=== PATIENT | female | born 1970 | race Caucasian/White ===

== ENCOUNTER 2020-08-04 10:30 | Outpatient (REF) | payer OTHER, SELFPAY ==
--- NOTE | 2020-08-04 10:35 | XR_ITS ---
EXAMINATION: XR ELBOW, RIGHT CLINICAL INFORMATION: Pain right elbow COMPARISON: None TECHNIQUE: AP, lateral, and oblique views of the right elbow. FINDINGS: There is no fracture, dislocation, destructive process, or elbow capsular effusion. No joint narrowing or erosive change. There is borderline spurring at the lateral epicondyle. IMPRESSION: Borderline spurring lateral epicondyle.
== END 2020-08-04 10:31 | disposition home or self-care (01) ==
LOC: HO.HMGCX 10:30
PROVIDERS: PCP Internal Medicine; Visit Provider Nurse Practitioner Family
DX: M25.521 Pain in right elbow (principal)
CPT/HCPCS: 73080

== ENCOUNTER → 2020-10-15 09:54 | Outpatient (BNVA) | payer OTHER, SELFPAY | PROVIDERS: Visit Provider Orthopaedic Surgery | DX: M77.11 Lateral epicondylitis, right elbow (principal) | CPT/HCPCS: 20550; 20605; 99202; J1020; J1100 ==

== ENCOUNTER 2021-01-28 10:28 | Outpatient (REF) | payer OTHER, SELFPAY ==
--- NOTE | ~2021-01-28 | MM_ITS ---
EXAMINATION: MM DIAGNOSTIC DIGITAL BREAST TOMOSYNTHESIS, RIGHT CLINICAL INFORMATION: Six-month follow-up left breast density. The lifetime risk of breast cancer based on the Tyrer-Cuzick Model is 17%. COMPARISON: Mammography: 07/10/2020 and studies dating back to 04/26/2007. TECHNIQUE: Digital breast tomosynthesis is performed in both the craniocaudal and mediolateral oblique views along with computer-aided detection (CAD). Synthesized 2D images are generated from the tomosynthesis. Additional left exaggerated craniocaudal view performed. FINDINGS: The breasts are heterogeneously dense, which may obscure small masses (ACR BI-RADS breast composition Category c). There is essentially a stable parenchymal pattern present. No suspicious grouping of microcalcifications identified. Circumscribed density anterior aspect of the left breast again seen. The density seen about the deep aspect of the left breast previously on craniocaudal view is best seen now on the exaggerated craniocaudal view and again likely represents a grouping of vessels which returns. Recommend 6 month follow-up bilateral mammography with left breast exaggerated craniocaudal view as well. Results are provided to the patient at time of visit by the technologist. MM/MM tomosynthesis diagnostic LT IMPRESSION: Density about the deep aspect of the left breast seen on craniocaudal and to extent on exaggerated craniocaudal view likely related to turn of vessels. ASSESSMENT: BI-RADS 3: Probably Benign. RECOMMENDATION: Diagnostic mammography in 6 months. This patient's information was entered into a reminder system with a target due date for their next mammogram.
== END 2021-01-28 10:29 | disposition home or self-care (01) ==
LOC: HO.MAMMO 10:28
PROVIDERS: PCP Internal Medicine; Visit Provider Internal Medicine
DX: R92.2 Inconclusive mammogram (principal)
CPT/HCPCS: 77061; 77065

== ENCOUNTER 2021-08-10 12:19 | Outpatient (REF) | payer OTHER, SELFPAY ==
--- NOTE | ~2021-08-10 | MM_ITS ---
EXAMINATION: MM DIAGNOSTIC DIGITAL BREAST TOMOSYNTHESIS, BILATERAL CLINICAL INFORMATION: Due for yearly. Also follow-up probable benign asymmetric fibroglandular tissue posterior central left breast on CC view. Family history breast cancer, mother. The lifetime risk of breast cancer based on the Tyrer-Cuzick Model is 14%. COMPARISON: Mammography: 01/28/2021, 02/08/2020, 07/01/2020 (BI-RADS 0), 04/16/2019, 03/26/2018, 02/01/2017, 12/09/2015 TECHNIQUE: Digital breast tomosynthesis is performed in both the craniocaudal and mediolateral oblique views along with computer-aided detection (CAD). Synthesized 2D images are generated from the tomosynthesis. FINDINGS: There are scattered areas of fibroglandular density (ACR BI-RADS breast composition Category b). Parenchymal pattern is similar to prior studies with some minor shifting fibroglandular densities from year to year with positioning. The fibroglandular asymmetry posterior central left breast on CC view with internal fatty attenuation is similar to recent exams. Neither breast shows abnormal calcifications. There is no developing density or interval mass or architectural abnormality. The axilla and skin contours are unremarkable. Results are provided to the patient at time of visit by the technologist. MM/MM tomosynthesis diagnostic BI IMPRESSION: 1. Left: Stable island fibroglandular tissue posterior central left breast. No developing density. 2. Right: No mammographic evidence of malignancy. ASSESSMENT: BI-RADS 3: Probably Benign RECOMMENDATION: Diagnostic mammography at time of next annual exam, due in 12 months. This patient's information was entered into a reminder system with a target due date for their next mammogram.
== END 2021-08-10 12:20 | disposition home or self-care (01) ==
LOC: HO.MAMMO 12:19
PROVIDERS: PCP Internal Medicine; Visit Provider Internal Medicine
DX: R92.2 Inconclusive mammogram (principal)
CPT/HCPCS: 77062; 77066

== ENCOUNTER 2022-08-15 08:52 | Outpatient (REF) | payer OTHER, SELFPAY ==
--- NOTE | ~2022-08-15 | MM_ITS ---
EXAMINATION: MM DIAGNOSTIC DIGITAL BREAST TOMOSYNTHESIS, BILATERAL CLINICAL INFORMATION: Due for yearly. Also follow-up fibroglandular asymmetry posterior left breast medial to midline initially noted in 2019. Family history breast cancer, mother. The lifetime risk of breast cancer based on the Tyrer-Cuzick Model is 15%. COMPARISON: Mammography: 08/10/2021, 01/28/2021, 07/10/2020, 07/01/2020, 04/16/2019 TECHNIQUE: Digital breast tomosynthesis is performed in both the craniocaudal and mediolateral oblique views along with computer-aided detection (CAD). Synthesized 2D images are generated from the tomosynthesis. FINDINGS: There are scattered areas of fibroglandular density (ACR BI-RADS breast composition Category b). There is no developing density or interval mass or architectural abnormality. The fibroglandular asymmetry for follow-up is no longer clearly demonstrated. There is nodular asymmetry periareolar 12:00 left breast similar to prior studies. No abnormal calcifications. The axilla are unremarkable. Probable dermal lesion mid lower left breast stable. Results are provided to the patient at time of visit by the technologist. MM/MM tomosynthesis diagnostic BI IMPRESSION: -No mammographic evidence of malignancy. ASSESSMENT: BI-RADS 2: Benign RECOMMENDATION: Routine annual mammography screening. This patient's information was entered into a reminder system with a target due date for their next mammogram.
== END 2022-08-15 08:53 | disposition home or self-care (01) ==
LOC: HO.MAMMO 08:52
PROVIDERS: Visit Provider Internal Medicine
DX: R92.2 Inconclusive mammogram (principal)
CPT/HCPCS: 77062; 77066

== ENCOUNTER 2022-09-13 09:47 | Outpatient (REF) | payer OTHER, SELFPAY ==
[2022-09-13 11:42] LABS: MANUAL DIFF FLAG NO
[2022-09-13 11:58] LABS: Basophils Percent Auto 0.7 % (0-2); Eosinophils Percent Auto 1.3 % (0-4); Hematocrit 42.6 % (37.0-47.0); Hemoglobin 13.7 g/dl (12.0-16.0); Lymphocytes Absolute Auto 1.2 X10*3/uL (1.2-4.9); Lymphocytes Percent Auto 38.2 % (20-40); Mean Corpuscular HGB Conc 32.2 g/dl (31.0-35.0); Mean Corpuscular Hemoglobin 29.7 pg (27.0-33.0); Mean Corpuscular Volume 92.4 fL (80.0-98.0); Mean Platelet Volume 10.2 fL (9.4-12.3); Monocytes Absolute Auto 0.2 X10*3/uL (0.1-1.2); Monocytes Percent Auto 7.3 % (2-11); Neutrophils Absolute Auto 1.6 x10*3/uL (2.0-8.3); Neutrophils Percent Auto 52.5 % (45-73); Platelet Count 250 X10*3/uL (160-400); Red Blood Count 4.61 X10*6/uL (4.20-5.50); Red Cell Distribution Width 11.7 % (11.0-16.0)
[2022-09-13 12:15] LABS: Alanine Aminotransferase 13 U/L (0-31); Albumin Level 4.4 g/dL (3.5-5.0); Alkaline Phosphatase 62 U/L (39-117); Anion Gap 13 (12-20); Aspartate Amino Transferase 19 U/L (5-31); Bilirubin Total 0.5 mg/dL (0.0-1.0); Blood Urea Nitrogen 13 mg/dL (9-16); Calcium 9.6 mg/dL (8.4-10.2); Carbon Dioxide 28 mmol/L (22-29); Chloride 104 mmol/L (96-108); Cholesterol 221 mg/dL; Estimated Glomerular Filt Rate > 60; Glucose Fasting 98 mg/dL (60-99); HDL Cholesterol 70 mg/dL; LDL Cholesterol Calculated 140 mg/dl; Sodium 141 mmol/L (135-145); Total Protein 7.6 g/dL (6.5-8.0); Triglycerides 55 mg/dL
[2022-09-13 12:36] LABS: TSH reflex Free T4 1.61 uIU/mL (0.32-4.0)
[2022-09-18 15:09] LABS: Vitamin D 25-OH, D2 <4 ng/mL; Vitamin D 25-OH, D3 28 ng/mL; Vitamin D 25-OH, Total 28 ng/mL (30-100)
== END 2022-09-13 09:48 | disposition home or self-care (01) ==
LOC: HO.HMGCLDS 09:47
PROVIDERS: PCP Internal Medicine; Visit Provider Internal Medicine
DX: Z00.01 Encounter for general adult medical examination with abnormal findings (principal); E78.9 Disorder of lipoprotein metabolism, unspecified; F41.1 Generalized anxiety disorder; M19.90 Unspecified osteoarthritis, unspecified site
CPT/HCPCS: 36415; 80053; 80061; 82306; 84443; 85025

== ENCOUNTER → 2023-01-02 08:52 | Outpatient (BNVA) | payer OTHER, SELFPAY | PROVIDERS: PCP Internal Medicine; Referring Provider Internal Medicine; Visit Provider Physician Assistant | DX: Z12.11 Encounter for screening for malignant neoplasm of colon (principal) | CPT/HCPCS: 99202 ==

== ENCOUNTER 2023-08-21 08:43 | Outpatient (REF) | payer OTHER, SELFPAY | END 2023-08-21 08:44 | disposition home or self-care (01) | LOC: HO.MAMMO 08:43 | PROVIDERS: PCP Internal Medicine; Visit Provider Internal Medicine | DX: Z12.31 Encounter for screening mammogram for malignant neoplasm of breast (principal) | CPT/HCPCS: 77063; 77067 ==

== ENCOUNTER → 2023-08-21 08:45 | Outpatient (BNV) | payer OTHER, SELFPAY | PROVIDERS: PCP Internal Medicine; Visit Provider Radiology Diagnostic Radiology | DX: Z12.31 Encounter for screening mammogram for malignant neoplasm of breast (principal) | CPT/HCPCS: 77063; 77067 ==

== ENCOUNTER 2023-08-28 08:25 | Day surgery (SDC) | payer OTHER, SELFPAY ==
[2023-08-24 15:13] VITALS: BMI 24.4
[2023-08-28 09:04] VITALS: BP 117/76; PULSE 71; RESP 18; TEMP 36.8; O2SAT 100
[2023-08-28] MEDS: Lactated Ringers 1,000 ML 50 ML IVCONT (09:08)
--- NOTE | 2023-08-28 09:13 | HO.ANESPROP2 ---
[facility] Active Problems Active Problems: All Active Problems (Updated 08/24/23 @ 15:14 by Chari Shelby RN) Encounter for screening colonoscopy (Acute) Skin growth (Acute) Arthrosis (Acute) Muscular pain (Acute) Colonoscopy refused (Acute) Lipid disorder (Acute) Herpes labialis (Acute) Anxiety, generalized (Acute) Encounter for general adult medical examination with abnormal findings (Acute) Alcohol screening (Acute) Elbow pain, right (Acute) Lateral epicondylitis, right elbow (Acute) Past Medical History Medical History (Updated 08/24/23 @ 15:14 by Chari Shelby RN) Anxiety Elevated cholesterol Lateral epicondylitis, right elbow Family History Family history of problems with anesthesia: No Surgical History Surgical History History of surgical removal of ganglion cyst History of carpal tunnel release History of Problems with Anesthesia: No Social History Social History Housing: House Patient Tobacco Use Status: Former Tobacco user (20 years ago ) Years Smoked: 15 e-Cigarette/Vaping Use: Never Used Advance Directives: No Advance Directives Information Provided: Yes Current occupational status: employed Current occupation: [employer] Right Handed Cognitive needs: No Hearing needs: No Vision needs: Yes Meds Allergies Allergy/AdvReac Type Severity Reaction Status Date / Time amoxicillin [Amoxicillin] Allergy Mild HIVES Verified 02/14/23 11:17 escitalopram [Lexapro] AdvReac Unknown numbness Verified 02/14/23 11:17 Active Medications: Current Medications Lactated Ringer's (Lr) 1,000 mls @ 50 mls/hr IVCONT .Q20H ANDREA Last Admin: 08/28/23 09:08 Dose: 50 mls/hr Exam Exam Date and Time: August 28, [id number] Height,Weight and Vital Signs: Height 5 ft 3 in Weight 62.596 kg Last Vital Signs Temp 98.3 F 08/28/23 09:04 Pulse 71 08/28/23 09:04 Resp 18 08/28/23 09:04 BP 117/76 08/28/23 09:04 Pulse Ox 100 08/28/23 09:04 O2 Del Method Room Air 08/28/23 09:04 Airway Mallampati Class: II (caps laterally) TM Dist: >3cm Neck ROM: Full Heart: rrr Lungs: cta Assessment and Plan Assessment Anesthesia Assessment: Anesthesia Plan Discussed and Chart Reviewed Final Anesthetic Review Family History of Problems with Anesthesia: No History of Problems with Anesthesia: No ASA Class: II Final Preanesthetic Review: No Changes in Pt Med Stat, Meds/Allgs Chart Reviewed and Consent Obtained/Reviewed Patient Risk: Intermediate Procedure Risk: Intermediate Anesthetic Plan Anesthetic Plan: MAC: Disposition: Standard PACU
--- NOTE | 2023-08-28 09:20 | MHC.SHP ---
Pre-Procedural Eval Section A Date of Service: 08/28/23 Section B Chief Complaint: Colon cancer screening Relevant Family History (Specify if Yes): No Relevant Social History: Tobacco Use (former smoker) Present Medications: see Short Stay Collaborative assessment Medical History: Significant History (Elevated cholesterol, right lateral epicondylitis) History of Previous Operations: Relevant previous surgery/procedure and date(s) (History of carpal tunnel release History of surgical removal of ganglion cyst) Allergies: Allergies Allergy/AdvReac Type Severity Reaction Status Date / Time amoxicillin [Amoxicillin] Allergy Mild HIVES Verified 02/14/23 11:17 escitalopram [Lexapro] AdvReac Unknown numbness Verified 02/14/23 11:17 Review of Systems Sugical H&P ROS: Negative: Constitution, Cardiovascular, Respiratory and Gastrointestinal Exam Surgical H&P Exam: Normal: Heart, Normal: Lungs, Normal: Extremities and Normal: Abdomen Plan Diagnosis/Plan: Unchanged I have reviewed the history and physical and performed a pertinent physical examination on my patient. No changes have occurred unless specified. Time Spent With Patient Time: Total time managing care of this patient today ____ minutes.
--- NOTE | 2023-08-28 10:11 | W.PM.OPN ---
Operative Note Operative Note Date of Service: 08/28/23 Narrative: COLONOSCOPY TILL CECUM Pre-op diagnosis: Colon cancer screening (1st colonoscopy) Post-op diagnosis:? Diverticulosis, hemorrhoids Endoscopist:? Ryan Arteaga MD Anesthesia:?MAC Consent: Indications for the procedure and potential complications of bleeding, perforation, reaction to medications and missed diagnosis were discussed with the patient and informed consent was obtained. Instrument: Olympus PCF H 190 L variable stiffness pediatric colonoscope Monitoring: Vital signs and clinical assessment, intermittent blood pressure monitoring, continuous EKG monitoring, Pulse oximetry and Carbon Dioxide monitoring were done throughout the procedure. Please see anesthesia flowsheet. Colon withdrawl time was 12 minutes. Procedure: The patient was placed in the left lateral decubitis position and pre-procedure medications were administered. After a digital rectal examination of the ano-rectum, the video colonoscope was inserted into the rectum and advanced through the colon to the cecum. The colonoscope was slowly withdrawn in a retrograde panoramic fashion and the colon mucosa was carefully examined including a retroflexed view of the rectum. Findings and interventions are described below. Procedure Difficulty: Without difficulty Findings: Terminal Ileum: Not evaluated Cecum: Normal Ascending Colon: Normal Transverse Colon: Normal Descending Colon: Normal Sigmoid Colon: Moderate diverticulosis Rectum: Normal Ano-rectum: Small internal hemorrhoids Colon preparation: Excellent Impression and Post Procedure Diagnosis: Colonoscopy Findings: No polyps were detected Moderate diverticulosis seen in the sigmoid colon Small hemorrhoids on retroflexed exam. Plan: Patient has an appointment on 09/11/23 in the GI Clinic with MEGHAN Da Silva . Repeat Colonoscopy in 10 years. Above findings were reviewed with the patient and diverticulosis handouts were given in the discharge area
[2023-08-28 10:53] VITALS: BP 92/65; PULSE 82; RESP 17; TEMP 37.4; O2SAT 98
[2023-08-28 11:07] VITALS: BP 111/73; PULSE 62; RESP 18; TEMP 36.9; O2SAT 100
== END 2023-08-28 11:49 | disposition home or self-care (01) ==
PROVIDERS: PCP Internal Medicine; Visit Provider Internal Medicine Gastroenterology
PROC: 0DJD8ZZ Inspection of Lower Intestinal Tract, Via Natural or Artificial Opening Endoscopic (ICD-10-PCS; CPT 45378; principal; 2023-08-28 10:10)
DX: Z12.11 Encounter for screening for malignant neoplasm of colon (principal); K57.30 Diverticulosis of large intestine without perforation or abscess without bleeding; K64.8 Other hemorrhoids; E78.00 Pure hypercholesterolemia, unspecified; Z87.891 Personal history of nicotine dependence
CPT/HCPCS: 45378; J2704

== ENCOUNTER → 2023-08-28 08:25 | Outpatient (BNV) | payer OTHER, SELFPAY | PROVIDERS: PCP Internal Medicine; Visit Provider Internal Medicine Gastroenterology | DX: Z12.11 Encounter for screening for malignant neoplasm of colon (principal); K57.30 Diverticulosis of large intestine without perforation or abscess without bleeding; K64.8 Other hemorrhoids | CPT/HCPCS: 45378 ==

== ENCOUNTER 2023-09-19 10:17 | Outpatient (AMB) | payer OTHER, SELFPAY ==
[2023-09-19 10:26] VITALS: BP 118/82; PULSE 84; O2SAT 98; BMI 24.5
--- NOTE | 2023-09-19 10:26 | MHC.PC.OV ---
Vital Signs 09/19/23 10:26 Height 5 ft 3 in Weight 138 lb 4 oz BMI 24.5 BP 118/82 Blood Pressure Location Lt brachial Position Sitting Pulse 84 Pulse Source Pulse Oximeter Pulse Oximetry (%) 98 Oxygen Delivery Method Room Air Intake Visit Reasons: Annual PE Allergies amoxicillin [Amoxicillin] Allergy (Mild, Verified 09/19/23 10:29) HIVES escitalopram [Lexapro] Adverse Reaction (Unknown, Verified 09/19/23 10:29) numbness Medication List - Last Reconciled 09/19/23 by Nelson Mccoy MD sertraline 50 mg PO DAILY 90 days valacyclovir 1,000 mg PO BID PRN 90 days Tobacco use date assessed: 09/19/23 Dental Screening Dental Screen Date: 09/19/23 Did you have a dental visit in the last 12 months?: Yes Did you have a dental problem in the last 6 months where you did not have access to dental care?: No Was dental information given to patient?: Patient has dentist HPI Annual PE HPI Details Patient is a 53-year-old female came in today for physical exam Anxiety stable patient is on sertraline Trying to cut down on alcohol consumption, she works as a [employer] Need CRV appointment Need labs done Recurrent cold sores stable with valacyclovir White count fluctuate last white count was low we will be monitoring it again Follow-up 6 months physical exam 1 year [facility] Medical History Anxiety Elevated cholesterol Lateral epicondylitis, right elbow Surgical History History of surgical removal of ganglion cyst History of carpal tunnel release Social History Housing: House Patient Tobacco Use Status: Former Tobacco user Years Smoked: 15 e-Cigarette/Vaping Use: Never Used Current occupational status: employed Current occupation: [employer] Cognitive needs: No Hearing needs: No Vision needs: Yes Questionnaire PHQ-9 Over the last 2 weeks, how often have you been bothered by any of the following problems? 1. Little interest or pleasure in doing things: not at all 2. Feeling down, depressed, or hopeless: not at all 3. Trouble falling or staying asleep, or sleeping too much: several days 4. Feeling tired or having little energy: not at all 5. Poor appetite or overeating: not at all 6. Feeling bad about yourself - or that you are a failure or have let yourself or your family down: not at all 7. Trouble concentrating on things, such as reading the newspaper or watching television: not at all 8. Moving or speaking so slowly that other people could have noticed. Or the opposite - being so fidgety or restless that you have been moving around a lot more than usual: not at all 9. Thoughts that you would be better off or of hurting yourself in some way: not at all Total score: 1 Depression Screening Interpretation: Negative Depression Screening Done: Yes 44487 - PHQ-9 Billing: Yes Source: Developed by Drs. Norris Willard, Ling Gonzalez, Yo Mckeon and colleagues, with an educational valarie from [employer]. Thrive Questionnaire Date Thrive assessed: 09/19/23 I am a: Patient What is your living situation today?: I have a steady place to live Within the past 12 months, did the food you bought not last and you didn't have the money to get more?: Never true Within the past 12 months, did you worry whether your food would run out before you got money to buy more?: Never true Do you have trouble paying for medicines?: No Do you have trouble getting transportation to medical appointments?: No Do you have trouble paying your heating and electricity bill?: No Do you have trouble taking care of your child, family member or friend?: No Do you have trouble with day-to-day activities such as bathing, preparing meals, shopping, managing finances, etc.?: No Are you currently unemployed and looking for a job?: No Are you interested in more education?: No Please select the resources that you would like help with: None Currently or been in a relationship where the following occur: no concerns reported AUDIT C Alcohol Use Questionnaire (AUDIT-C) 1. How often do you have a drink containing alcohol?: 2-3 times a week 2. How many drinks containing alcohol do you have on a typical day when you are drinking?: 3 or 4 3. How often do you have six or more drinks on one occasion?: Never Total Score: 4 Score Reviewed/Action Taken: Yes MANOJ-7 AMB Questionnaire MANOJ-7 Date MANOJ - 7 assessed: 09/19/23 Feeling nervous, anxious, or on edge: 0 = Not at all Not being able to stop or control worryin = Not at all Worrying too much about different things: 0 = Not at all Trouble relaxin = Not at all Being so restless that it is hard to sit still: 0 = Not at all Becoming easily annoyed or irritable: 0 = Not at all Feeling afraid as if something awful might happen: 0 = Not at all Total MANOJ-7 score (0-4 normal; 5-9 mild; 10-14 moderate; 15-21 severe): 0 Source: Developed by Drs. Norris Willard, Ling Gonzalez, Yo Mckeon and colleagues, with an educational valarie from [employer]. MANOJ-7 Assessment Billing MANOJ-7 Assessment Tool: MANOJ-7 Assessment 65105 Review of Systems Const Denies chills, Denies fever(s) and Denies headache(s) Eyes Denies blurry vision ENT Denies headache(s), Denies nasal discharge, Denies nasal obstruction, Denies odynophagia and Denies sinus pain Card Denies chest pain at rest and Denies chest pain with activity Resp Denies cough and Denies hemoptysis GI Denies diarrhea, Denies odynophagia, Denies vomiting and Denies hematemesis Reports as per HPI Musc Denies abnormal gait Skin/Breast Reports as per HPI Neuro Denies Neuro-related abnormal movements, Denies Abnormal speech present, Denies abnormal gait, Denies headache(s) and Denies Sensory deficit (Neuro) Psych Denies mood swings and Denies paranoia Endo Reports as per HPI Angel/Lymph Reports as per HPI Aller/Immun Reports as per HPI Physical exam (Primary Care) Vital Signs: Last Vital Signs Pulse 84 09/19/23 10:26 BP 118/82 09/19/23 10:26 Pulse Ox 98 09/19/23 10:26 Oxygen Delivery Method Room Air 09/19/23 10:26 BMI result Body Mass Index 24.5 Tobacco/Smoking Status: Tobacco use Status Tobacco use date assessed 09/19/23 09/19/23 10:29 Patient Tobacco Use Status Former Tobacco user 09/19/23 10:29 e-Cigarette/Vaping Use Never Used 09/19/23 10:29 PHQ-9: PHQ-9 Score PHQ-9: Total score 1 09/19/23 13:08 Depression Screening Interpretation: Negative Thrive Assessment: Date of Thrive Assessment Date Thrive assessed 09/19/23 09/19/23 10:55 Currently or been in a relationship where the following occur: no concerns reported Const General: cooperative, comfortable and no acute distress Orientation/consciousness: patient oriented x3 HENMT Head: Yes normocephalic and Yes atraumatic Eyes General: appearance normal, both eyes and all related structures Pupils: Equal, round and reactive pupils present EOM: EOMs intact bilaterally Neck Neck: Yes supple and No lymphadenopathy Thyroid: Thyroid normal Lymphatic: no lymphadenopathy noted Resp Effort & Inspection: normal respiratory effort and able to speak in complete sentences Auscultation: clear to auscultation bilaterally Cardio Heart sounds: S1 normal heart sound present and S2 normal heart sound present GI Palpation (GI): Soft to palpation and nontender Auscultation: normal bowel sounds General: Yes no CVA tenderness Back/Spine/Pelvis Back: no CVA tenderness Skin General skin exam: elasticity normal and turgor normal Neuro General: patient oriented x3 and gait normal Cranial nerves: Yes Equal, round and reactive pupils present Speech: No Abnormal speech present Sensory Exam: No Sensory deficit (Neuro) Coordination: tandem gait normal and Romberg test negative Extrem General: Yes normal exam except as noted and No edema Office Procedures Flu Questionnaire Does the patient have a severe egg allergy?: No Does the patient have severe life threatening allergies?: No Does the patient have a fever or illness today?: No Has the patient ever had Guillain-[place] Syndrome?: No Has the patient ever had any past reaction to a flu shot?: No Immunizations flu vacc [id number] 6mos up(PF) 60 mcg(15 mcgx4)/0.5 mL IM syringe Performing Provider: Nelson Mccoy MD Performing Location: [facility] Administered by: Michelle Soler CMA on 09/19/23 10:53 Dose Route Admin Location Dispensed Lot Number Expiration Date NDC [employer] 0.5 mL IM Left Deltoid 0.5 mL [id number] 04/14/24 07834-728-23 [employer] VIS Given Date VIS Provided VIS Publication Date 09/19/23 Single Vaccine 21 Eligibility Eligibility Date Funding Source Not [facility] Eligible 09/19/23 Private Assessment and Plan Assessment & Plan (1) Encounter for general adult medical examination with abnormal findings: Code(s): Z00.01 - Encounter for general adult medical examination with abnormal findings (2) Anxiety, generalized: Code(s): F41.1 - Generalized anxiety disorder (3) Neutropenia: Code(s): D70.9 - Neutropenia, unspecified Qualifiers: Neutropenia type: unspecified Qualified Code(s): D70.9 - Neutropenia, unspecified (4) Herpes labialis: Code(s): B00.1 - Herpesviral vesicular dermatitis (5) Lipid disorder: Code(s): E78.9 - Disorder of lipoprotein metabolism, unspecified (6) Alcohol screening: Code(s): Z13.39 - Encounter for screening examination for other mental health and behavioral disorders (7) Alcohol use: Code(s): Z78.9 - Other specified health status Plan Patient is a 53-year-old female came in today for physical exam Anxiety stable patient is on sertraline Trying to cut down on alcohol consumption, 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 Need OBGYN appointment Need labs done Recurrent cold sores stable with valacyclovir White count fluctuate last white count was low we will be monitoring it again Follow-up 6 months physical exam 1 year Orders: Orders LDL Cholesterol Direct Today B00.1 - Herpesviral vesicular dermatitis, E78.9 - Disorder of lipoprotein metabolism, unspecified, F41.1 - Generalized anxiety disorder, Z00.01 - Encounter for general adult medical examination with abnormal findings, Z13.39 - Encounter for screening examination for other mental health and behavioral disorders Influenza [id number] Immunization Today Z23 - Encounter for immunization Complete Blood Count Auto Diff Today B00.1 - Herpesviral vesicular dermatitis, E78.9 - Disorder of lipoprotein metabolism, unspecified, F41.1 - Generalized anxiety disorder, Z00.01 - Encounter for general adult medical examination with abnormal findings Comprehensive Met. Panel Today B00.1 - Herpesviral vesicular dermatitis, E78.9 - Disorder of lipoprotein metabolism, unspecified, F41.1 - Generalized anxiety disorder, Z00.01 - Encounter for general adult medical examination with abnormal findings, Z13.39 - Encounter for screening examination for other mental health and behavioral disorders Referrals [employer] Referral Z01.419 - Encounter for gynecological examination (general) (routine) without abnormal findings Medications: Refilled sertraline 50 mg PO DAILY 90 tabs 1RF 90 days valacyclovir 1,000 mg PO BID PRN 90 tabs 0RF Cold sore 90 days Coding Level of Care Code Est Pt Prev Care 40-64y(51678) Diagnoses Encounter for general adult medical examination with abnormal findings Z00.01 Anxiety, generalized F41.1 Neutropenia, unspecified type D70.9 Neutropenia type: unspecified Herpes labialis B00.1 Lipid disorder E78.9 Alcohol screening Z13.39 Alcohol use Z78.9 Additional Codes MANOJ-7 Assessment Billing - MANOJ-7 Assessment Tool: MANOJ-7 Assessment 32439 ([id number])
== END 2023-09-19 12:14 | disposition home or self-care (01) ==
PROVIDERS: Visit Provider Internal Medicine
DX: Z00.00 Encounter for general adult medical examination without abnormal findings (principal); F41.1 Generalized anxiety disorder; D70.9 Neutropenia, unspecified; Z23 Encounter for immunization; B00.1 Herpesviral vesicular dermatitis; E78.9 Disorder of lipoprotein metabolism, unspecified; Z13.39 Encounter for screening examination for other mental health and behavioral disorders; Z78.9 Other specified health status
CPT/HCPCS: 90471; 90686; 99396

== ENCOUNTER 2023-09-19 10:57 | Outpatient (REF) | payer OTHER, SELFPAY ==
[2023-09-19 13:17] LABS: MANUAL DIFF FLAG NO
[2023-09-19 13:28] LABS: Basophils Percent Auto 0.6 % (0-2); Eosinophils Percent Auto 0.6 % (0-4); Hematocrit 41.7 % (37.0-47.0); Hemoglobin 13.5 g/dl (12.0-16.0); Lymphocytes Absolute Auto 1.4 X10*3/uL (1.2-4.9); Lymphocytes Percent Auto 41.6 % (20-40); Mean Corpuscular HGB Conc 32.4 g/dl (31.0-35.0); Mean Corpuscular Hemoglobin 30.1 pg (27.0-33.0); Mean Corpuscular Volume 93.1 fL (80.0-98.0); Mean Platelet Volume 9.9 fL (9.4-12.3); Monocytes Absolute Auto 0.3 X10*3/uL (0.1-1.2); Monocytes Percent Auto 10.4 % (2-11); Neutrophils Absolute Auto 1.5 x10*3/uL (2.0-8.3); Neutrophils Percent Auto 46.8 % (45-73); Platelet Count 266 X10*3/uL (160-400); Red Blood Count 4.48 X10*6/uL (4.20-5.50); Red Cell Distribution Width 11.4 % (11.0-16.0); White Blood Count 3.3 X10*3/uL (4.8-10.8)
[2023-09-19 14:22] LABS: Alanine Aminotransferase 13 U/L (0-31); Albumin Level 4.2 g/dL (3.5-5.0); Alkaline Phosphatase 51 U/L (39-117); Anion Gap 12 (12-20); Aspartate Amino Transferase 17 U/L (5-31); Bilirubin Total 0.5 mg/dL (0.0-1.0); Blood Urea Nitrogen 10 mg/dL (9-16); Calcium 9.4 mg/dL (8.4-10.2); Carbon Dioxide 27 mmol/L (22-29); Chloride 104 mmol/L (96-108); Estimated Glomerular Filt Rate > 60; Glucose Random 94 mg/dL (60-115); Sodium 139 mmol/L (135-145); Total Protein 7.9 g/dL (6.5-8.0)
[2023-09-25 05:59] LABS: LDL Cholesterol Direct 150 mg/dL (<100)
== END 2023-09-19 10:58 | disposition home or self-care (01) ==
LOC: HO.HMGCLDS 10:57
PROVIDERS: PCP Internal Medicine; Visit Provider Internal Medicine
DX: Z00.01 Encounter for general adult medical examination with abnormal findings (principal); Z13.39 Encounter for screening examination for other mental health and behavioral disorders; F41.1 Generalized anxiety disorder; B00.1 Herpesviral vesicular dermatitis; E78.9 Disorder of lipoprotein metabolism, unspecified
CPT/HCPCS: 36415; 80053; 83721; 85025

== ENCOUNTER 2023-12-26 12:37 | Outpatient (AMB) | payer OTHER, SELFPAY ==
[2023-12-26 13:01] VITALS: BP 110/78; BMI 24.8
--- NOTE | 2023-12-26 13:01 | A.OFFVIS_ITS ---
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 No complaints. The patient had Mirena IUD inserted in 2015 and is requesting removal Last Pap/HPV was negative in 03/31 Last Mammogram was BI-RADS 1 in 09/07 Last colonoscopy was in 09/07 was negative, the recommendation was to repeat in 10 years FORMERLY [facility], [facility] Medical History Anxiety Elevated cholesterol Lateral epicondylitis, right elbow Surgical History History of surgical removal of ganglion cyst History of carpal tunnel release Social History Housing: House Patient Tobacco Use Status: Former Tobacco user Years Smoked: 15 e-Cigarette/Vaping Use: Never Used Current occupational status: employed Current occupation: [employer] Sexually active: Yes Sexual orientation: Straight/Heterosexual Gender identity: Female Cognitive needs: No Hearing needs: No Vision needs: Yes Female Reproductive History Menstrual Menopause type: natural Total pregnancies: 3 Full term: 2 Number of Living Children: 2 Ab induced: 1 Date of last pap smear: 03/30/16 Date of Mammogram: 08/31/23 Review of Systems Const All systems reviewed & are unremarkable except as noted in HPI and below Card Reports as per HPI Resp Reports as per HPI GI Reports as per HPI and Reports no additional complaints Reports as per HPI Physical Exam Vital Signs: Last Vital Signs BP 110/78 12/26/23 13:01 BMI result Body Mass Index 24.8 Const General: cooperative, healthy appearing and comfortable Chest Chest palpation & inspection: normal inspection of the chest and normal palpation of entire chest wall Breast/axilla inspection: normal inspection of the breasts and normal inspection of the axillae Breast/axilla palpation: normal palpation of the breasts, normal palpation of the axillae and no axillary lymphadenopathy Resp Effort & Inspection: normal respiratory effort Auscultation: clear to auscultation bilaterally Percussion: percussion normal Cardio Palpation: normal PMI Rate: regular rate Rhythm: regular rhythm Heart sounds: no murmurs and no rubs Peripheral pulses: Peripheral pulses 2+ throughout GI Inspection: Yes normal to inspection Palpation (GI): Soft to palpation, nontender, no guarding, not rigid and No hepatosplenomegaly present Percussion: Yes normal to percussion Auscultation: normal bowel sounds Rectal Exam - Female: deferred General: Yes bladder normal to palpation External Female Exam: No lesion Speculum Exam - Vagina: normal appearance of the vagina, normal palpation, normal vaginal discharge and not erythematous Speculum Exam - Cervix: normal appearance of the cervix, normal palpation and Other cervical findings present (IUD thread in place) Bimanual exam- vagina & uterus: normal bimanual exam, normal palpation, uterine size normal, bladder normal to palpation, consistency normal and normal palpation Bimanual Exam- Adnexa, other: normal adnexae, no masses and no tenderness Office Procedures IUD Insert/Removal Details Details: Counseling/Consent: After discussing with the patient the risks of the procedure including bleeding, infection, scar tissue formation, , possible injury to blood vessels or nerves, chronic arm pain, blood transfusion, and irregular unpredictable bleeding Alternative options were discussed with the patient including but not limited: Do nothing. The patient signed the consent and agreed with the plan; all questions answered. Preop dx: Requesting IUD removal Op: IUD removal Post op dx: same EBL= 10 cc Procedure: The patient was put in the dorsal lithotomy position a speculum was inserted in the vagina the IUD thread identified. Using a Kate clamp the thread was grasped and the IUD pulled out with no complications. The patient tolerated the procedure well and was advised to use a different method for contraception. Discharge instructions: Instructions were given to the pt to call if temp>100.4, abdominal pain heavy vaginal bleeding, n/v occur. The patient verbalized understanding and all questions answered. This note was generated with a voice recognition program. Some errors may have been overlooked during the review of this note. Sometimes these errors may affect the content or meaning of a given sentence. [id number] Removal Procedure code (CPT) selection complete Assessment & Plan Assessment & Plan (1) Well woman exam: Code(s): Z01.419 - Encounter for gynecological examination (general) (routine) without abnormal findings Plan: Co testing done. Counseled the patient about the recommended dietary allowance of 1200 mg of Calcium & 600 IU of vitamin D. Instructions given the patient to schedule next screening Mammogram in 09/08. The patient was instructed to perform monthly self-breast exams and schedule annual exam in a year. All questions answered and the patient verbalized understanding. (2) Encounter for IUD removal: Code(s): Z30.432 - Encounter for removal of intrauterine contraceptive device Plan: IUD removed, see procedure note Orders: Orders Pap Smear Today Z01.419 - Encounter for gynecological examination (general) (routine) without abnormal findings Coding Level of Care Code New Pt Prev Care 40-64y(61998) Diagnoses Well woman exam Z01.419 Encounter for IUD removal Z30.432 CPT Codes Details - CPT: 57378-KEK Removal ([id number]) Comment IUD removal
== END 2023-12-26 13:26 | disposition home or self-care (01) ==
PROVIDERS: PCP Internal Medicine; Visit Provider Obstetrics & Gynecology
DX: Z01.419 Encounter for gynecological examination (general) (routine) without abnormal findings (principal); Z30.432 Encounter for removal of intrauterine contraceptive device
CPT/HCPCS: 58301; 99386

== ENCOUNTER 2023-12-26 12:37 | Outpatient (REF) | payer OTHER, SELFPAY ==
[2023-12-29 06:33] LABS: HPV mRNA E6/E7 rflx Not Detected (Not Detected)
== END 2023-12-26 12:38 | disposition home or self-care (01) ==
LOC: HO.LNP 12:37
PROVIDERS: PCP Internal Medicine; Visit Provider Obstetrics & Gynecology
DX: Z30.432 Encounter for removal of intrauterine contraceptive device (principal)
CPT/HCPCS: 58301; 87624; 88142; 99386

== ENCOUNTER 2024-03-19 09:31 | Outpatient (AMB) | payer OTHER, SELFPAY ==
[2024-03-19 09:32] VITALS: BP 102/62; PULSE 62; O2SAT 100; BMI 24.5
--- NOTE | 2024-03-19 09:32 | A.OFFPC_ITS ---
Vital Signs 3 03/19/24 09:32 Height 5 ft 3 in Weight 138 lb 8 oz BMI 24.5 BP 102/62 Blood Pressure Location Rt brachial Position Sitting Pulse 62 Pulse Source Pulse Oximeter Pulse Oximetry (%) 100 Oxygen Delivery Method Room Air Intake Visit Reasons: 6 month fu Allergies amoxicillin [Amoxicillin] Allergy (Mild, Verified 03/19/24 09:32) HIVES escitalopram [Lexapro] Adverse Reaction (Unknown, Verified 03/19/24 09:32) numbness Medication List - Last Reconciled 03/19/24 by Nelson Mccoy MD sertraline 50 mg PO DAILY 90 days valacyclovir 1,000 mg PO BID PRN 90 days Tobacco use date assessed: 03/19/24 Dental Screening Dental Screen Date: 03/19/24 Did you have a dental visit in the last 12 months?: Yes Did you have a dental problem in the last 6 months where you did not have access to dental care?: No Was dental information given to patient?: Patient has dentist HPI 6 month fu 2 HPI0 Details Patient is 54 old female came in today for six-month follow-up appointment on anxiety She is taking sertraline 50 mg daily, tolerating medication anxiety stable Patient also have a lipid disorder feel LDL of 150 checked in September 2023, Patient says that she has modified her diet, she is eating more nuts and less processed food I have placed order for labs to be done fasting for re-evaluate. Patient has developed large bunion right foot which is causing pain She is requesting a referral to orthopedic child development specialist. She has a physical exam scheduled for September, lab order placed for September as well. 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 1. Little interest or pleasure in doing things: not at all 2. Feeling down, depressed, or hopeless: not at all 3. Trouble falling or staying asleep, or sleeping too much: several days 4. Feeling tired or having little energy: not at all 5. Poor appetite or overeating: not at all 6. Feeling bad about yourself - or that you are a failure or have let yourself or your family down: not at all 7. Trouble concentrating on things, such as reading the newspaper or watching television: not at all 8. Moving or speaking so slowly that other people could have noticed. Or the opposite - being so fidgety or restless that you have been moving around a lot more than usual: not at all 9. Thoughts that you would be better off or of hurting yourself in some way: not at all Total score: 1 Depression Screening Interpretation: Negative Depression Screening Done: Yes 08070 - PHQ-9 Billing: Yes Source: Developed by Drs. Norris Willard, Ling Gonzalez, Yo Mckeon and colleagues, with an educational valarie from [employer]. Thrive Questionnaire Date Thrive assessed: 03/19/24 I am a: Patient What is your living situation today?: I have a steady place to live Within the past 12 months, did the food you bought not last and you didn't have the money to get more?: Never true Within the past 12 months, did you worry whether your food would run out before you got money to buy more?: Never true Do you have trouble paying for medicines?: No Do you have trouble getting transportation to medical appointments?: No Do you have trouble paying your heating and electricity bill?: No Do you have trouble taking care of your child, family member or friend?: No Do you have trouble with day-to-day activities such as bathing, preparing meals, shopping, managing finances, etc.?: No Are you currently unemployed and looking for a job?: No Are you interested in more education?: No Please select the resources that you would like help with: Education Currently or been in a relationship where the following occur: no concerns reported THRIVE Score: 0 AUDIT C Alcohol Use Questionnaire (AUDIT-C) 1. How often do you have a drink containing alcohol?: 2-4 times a month 2. How many drinks containing alcohol do you have on a typical day when you are drinking?: 3 or 4 3. How often do you have six or more drinks on one occasion?: Monthly Total Score: 5 Score Reviewed/Action Taken: Yes MANOJ-7 AMB Questionnaire MANOJ-7 Date MANOJ - 7 assessed: 03/19/24 Feeling nervous, anxious, or on edge: 1 = Several days Not being able to stop or control worryin = Not at all Worrying too much about different things: 0 = Not at all Trouble relaxin = Several days Being so restless that it is hard to sit still: 1 = Several days Becoming easily annoyed or irritable: 1 = Several days Feeling afraid as if something awful might happen: 0 = Not at all Total MANOJ-7 score (0-4 normal; 5-9 mild; 10-14 moderate; 15-21 severe): 4 Source: Developed by Drs. Norris Willard, Ling Gonzalez, Yo Mckeon and colleagues, with an educational valarie from [employer]. Review of Systems Const Denies chills and Denies fever(s) ENT Denies epistaxis and Denies nasal discharge Card Denies chest pain Resp Denies chest congestion, Denies cough and Denies hemoptysis GI Denies diarrhea and Denies nausea Skin/Breast Denies rash Neuro Reports no additional complaints Psych Reports no additional complaints Endo Reports no additional complaints Physical exam (Primary Care) Vital Signs: Last Vital Signs Pulse 62 03/19/24 09:32 BP 102/62 03/19/24 09:32 Pulse Ox 100 03/19/24 09:32 Oxygen Delivery Method Room Air 03/19/24 09:32 BMI result Body Mass Index 24.5 Tobacco/Smoking Status: Tobacco use Status Tobacco use date assessed 03/19/24 03/19/24 09:33 Patient Tobacco Use Status Former Tobacco user 03/19/24 09:33 e-Cigarette/Vaping Use Never Used 03/19/24 09:33 PHQ-9: PHQ-9 Score PHQ-9: Total score 1 03/19/24 09:37 Depression Screening Interpretation: Negative Thrive Assessment: Date of Thrive Assessment Date Thrive assessed 03/19/24 03/19/24 09:33 Currently or been in a relationship where the following occur: no concerns reported Const General: cooperative, comfortable and no acute distress Orientation/consciousness: patient oriented x3 HENDE Head: Yes normocephalic Eyes General: appearance normal, both eyes and all related structures Neck Neck: Yes supple Resp Effort & Inspection: normal respiratory effort, no cough and no stridor Cardio Rhythm: regular rhythm Heart sounds: S1 normal heart sound present and S2 normal heart sound present Skin General skin exam: turgor normal Neuro General: patient oriented x3, tone normal and moves all extremities Extrem Right lower extremity: no edema Left lower extremity: no edema Ankle/foot/toe images: 2 1. Large bunion right foot Assessment and Plan Assessment & Plan (1) Anxiety, generalized: Code(s): F41.1 - Generalized anxiety disorder (2) Lipid disorder: Code(s): E78.9 - Disorder of lipoprotein metabolism, unspecified (3) Bunion, right foot: Code(s): M21.611 - Bunion of right foot Plan Patient is 54 old female came in today for six-month follow-up appointment on anxiety She is taking sertraline 50 mg daily, tolerating medication anxiety stable Patient also have a lipid disorder feel LDL of 150 checked in September 2023, I have placed order for labs to be done fasting for re-evaluate. Patient has developed large bunion right foot which is causing pain She is requesting a referral to orthopedic child development specialist. She has a physical exam scheduled for September, lab order placed for September as well. Orders: Orders 2 Comprehensive [place]. Panel Fast Today E78.9 - Disorder of lipoprotein metabolism, unspecified, F41.1 - Generalized anxiety disorder TSH reflex Free T4 Today E78.9 - Disorder of lipoprotein metabolism, unspecified, F41.1 - Generalized anxiety disorder Vitamin D 25-OH (D2 and D3) Today E78.9 - Disorder of lipoprotein metabolism, unspecified, F41.1 - Generalized anxiety disorder Complete Blood Count Auto Diff 6 Months E78.9 - Disorder of lipoprotein metabolism, unspecified, F41.1 - Generalized anxiety disorder Comprehensive [place]. Panel Fast 6 Months E78.9 - Disorder of lipoprotein metabolism, unspecified, F41.1 - Generalized anxiety disorder Complete Blood Count Auto Diff Today E78.9 - Disorder of lipoprotein metabolism, unspecified, F41.1 - Generalized anxiety disorder Lipid Panel Today E78.9 - Disorder of lipoprotein metabolism, unspecified, F41.1 - Generalized anxiety disorder Lipid Panel 6 Months E78.9 - Disorder of lipoprotein metabolism, unspecified, F41.1 - Generalized anxiety disorder Referrals 2 Orthopedics Referral M21.611 - Bunion of right foot Coding Level of Care Code Est Pt Level 3 (28511) Complex EM visit Add On G2211 Diagnoses Anxiety, generalized F41.1 Lipid disorder E78.9 Bunion, right foot M21.611
== END 2024-03-19 10:59 | disposition home or self-care (01) ==
PROVIDERS: PCP Internal Medicine; Visit Provider Internal Medicine
DX: E78.9 Disorder of lipoprotein metabolism, unspecified (principal); F41.1 Generalized anxiety disorder; M21.611 Bunion of right foot
CPT/HCPCS: 99213; G2211

== ENCOUNTER 2024-10-01 08:26 | Outpatient (AMB) | payer OTHER, SELFPAY ==
--- NOTE | 2024-10-01 08:31 | A.OFFPC_ITS ---
Vital Signs 10/01/24 08:32 Height 5 ft 3 in Weight 142 lb 8 oz BMI 25.2 BP 118/74 Blood Pressure Location Rt brachial Position Sitting Pulse 81 Pulse Source Pulse Oximeter Pulse Oximetry (%) 99 Oxygen Delivery Method Room Air Intake Visit Reasons: Annual PE Allergies amoxicillin [Amoxicillin] Allergy (Mild, Verified 10/01/24 08:33) HIVES escitalopram [Lexapro] Adverse Reaction (Unknown, Verified 10/01/24 08:33) numbness Medication List - Last Reconciled 10/01/24 by Nelson Mccoy MD sertraline 50 mg PO DAILY 90 days valacyclovir 1,000 mg PO BID PRN 90 days Tobacco use date assessed: 10/01/24 Dental Screening Dental Screen Date: 10/01/24 Did you have a dental visit in the last 12 months?: Yes Did you have a dental problem in the last 6 months where you did not have access to dental care?: No Was dental information given to patient?: Patient has dentist HPI Annual PE HPI Details Chief Complaint Physical exam Assessment and Plan 54-year-old female with a history of usi ng sertraline for depression presenting for a routine wellness visit, with concerns about recent weight gain. The patient reports not using sertraline regularly over the past month due to feeling stable without it. Her weight has fluctuated since her last appointment, and she expresses a desire to manage her weight through diet and exercise. She also discussed having low vitamin D levels, which she has not been managing with supplementation. The patient mentioned a dermatological issue on her face, which she plans to have assessed by a staff technologist. Her recent colonoscopy and upcoming mammogram are up-to-date, and she plans to receive a flu vaccine during this visit. 1. Dermatological Concern On Face - Advised a dermatological evaluation fo r a facial lesion that appears benign but should be assessed, especially given her history of prior dermatological visits. 2. Vitamin D Deficiency - Recommended vitamin D supplementation. Patient hasn't been taking supplements regularly. 3. Use Of Sertraline For Depression - Discussed discontinuing sertraline giv en her current stability without it. Advised to consider a lower dosage if she decides to restart, starting with 25mg. 4. Overweight - Encouraged dietary modification and ex ercise. Offered dietary consultation, which the patient declined. The patient is working on weight management independently before her upcoming cruise. Diagnostic results - Labs: Last year's labs reviewed with the patient patient notified that there is an order already existing in the chart - Tests: Colonoscopy completed in [facility] er of the previous year; normal findings. Upcoming mammogram scheduled. - Diagnostics: No new diagnostics conduc theresa during this visit. Problem List - Overweight (E66.9) - Vitamin D deficiency (E55.9) - Use of sertraline for depression (F32. 9) - Dermatological concern on face (H02.83 7) Medications - Sertraline PRN for depression (unregul ar usage noted) -valacyclovir for recurrent cold sores, refill sent Health Maintenance - Influenza vaccine to be administered t his visit. - Colonoscopy completed in August of l ast year; next due in 10 years. - Recent normal OBGYN visit and upcoming mammogram. - Vitamin D supplementation recommended, but patient has not been compliant. - Discussed weight management with focus on diet and exercise. [facility] - Dr. Wei at [facility] OBGYN - Dr. Nicole at [facility] for Derm atology Patient Instructions - Begin vitamin D supplementation as pre viously advised. - Maintain regular exercise and healthy diet to address weight gain. - Contact Dr. Ruvalcaba for dermatological assessment for facial lesion. - Follow up on flu vaccine today. - Schedule and attend upcoming mammogram appointment. [facility] Medical History Anxiety Elevated cholesterol Lateral epicondylitis, right elbow Surgical History History of surgical removal of ganglion cyst History of carpal tunnel release Social History Housing: House Patient Tobacco Use Status: Former Tobacco user Years Smoked: 15 e-Cigarette/Vaping Use: Never Used Current occupational status: employed Current occupation: [employer] Sexual orientation: Straight/Heterosexual Gender identity: Female Cognitive needs: No Hearing needs: No Vision needs: Yes Questionnaire PHQ-9 Over the last 2 weeks, how often have you been bothered by any of the following problems? 1. Little interest or pleasure in doing things: not at all 2. Feeling down, depressed, or hopeless: not at all 3. Trouble falling or staying asleep, or sleeping too much: not at all 4. Feeling tired or having little energy: not at all 5. Poor appetite or overeating: not at all 6. Feeling bad about yourself - or that you are a failure or have let yourself or your family down: not at all 7. Trouble concentrating on things, such as reading the newspaper or watching television: not at all 8. Moving or speaking so slowly that other people could have noticed. Or the opposite - being so fidgety or restless that you have been moving around a lot more than usual: not at all 9. Thoughts that you would be better off or of hurting yourself in some way: not at all Total score: 0 Depression Screening Interpretation: Negative Depression Screening Done: Yes 08540 - PHQ-9 Billing: Yes Source: Developed by Drs. Norris Willard, Ling Gonzalez, Yo Mckeon and colleagues, with an educational valarie from [employer]. Thrive Questionnaire Date Thrive assessed: 10/01/24 I am a: Patient What is your living situation today?: I have a steady place to live Within the past 12 months, did the food you bought not last and you didn't have the money to get more?: Never true Within the past 12 months, did you worry whether your food would run out before you got money to buy more?: Never true Do you have trouble paying for medicines?: No Do you have trouble getting transportation to medical appointments?: No Do you have trouble paying your heating and electricity bill?: No Do you have trouble taking care of your child, family member or friend?: No Do you have trouble with day-to-day activities such as bathing, preparing meals, shopping, managing finances, etc.?: No Are you currently unemployed and looking for a job?: No Are you interested in more education?: No Please select the resources that you would like help with: None Currently or been in a relationship where the following occur: No concerns reported THRIVE Score: 0 AUDIT C Alcohol Use Questionnaire (AUDIT-C) 1. How often do you have a drink containing alcohol?: 2-3 times a week 2. How many drinks containing alcohol do you have on a typical day when you are drinking?: 1 or 2 3. How often do you have six or more drinks on one occasion?: Less than monthly Total Score: 4 Score Reviewed/Action Taken: Yes MANOJ-7 AMB Questionnaire MANOJ-7 Date MANOJ - 7 assessed: 10/01/24 Feeling nervous, anxious, or on edge: 0 = Not at all Not being able to stop or control worryin = Not at all Worrying too much about different things: 0 = Not at all Trouble relaxin = Several days Being so restless that it is hard to sit still: 0 = Not at all Becoming easily annoyed or irritable: 0 = Not at all Feeling afraid as if something awful might happen: 0 = Not at all Total MANOJ-7 score (0-4 normal; 5-9 mild; 10-14 moderate; 15-21 severe): 1 Source: Developed by Drs. Norris Willard, Ling Gonzalez, Yo Mckeon and colleagues, with an educational valarie from [employer]. MANOJ-7 Assessment Billing MANOJ-7 Assessment Tool: MANOJ-7 Assessment 24124 Review of Systems Const Denies chills, Denies fever(s) and Denies headache(s) Eyes Denies blurry vision ENT Denies headache(s), Denies nasal discharge, Denies nasal obstruction, Denies odynophagia and Denies sinus pain Card Denies chest pain at rest and Denies chest pain with activity Resp Denies cough and Denies hemoptysis GI Denies diarrhea, Denies odynophagia, Denies vomiting and Denies hematemesis Reports as per HPI Musc Denies abnormal gait Skin/Breast Reports as per HPI Neuro Denies Neuro-related abnormal movements, Denies Abnormal speech present, Denies abnormal gait, Denies headache(s) and Denies Sensory deficit (Neuro) Psych Denies mood swings and Denies paranoia Endo Reports as per HPI Angel/Lymph Reports as per HPI Aller/Immun Reports as per HPI Physical exam (Primary Care) Vital Signs: Last Vital Signs Pulse 81 10/01/24 08:32 BP 118/74 10/01/24 08:32 Pulse Ox 99 10/01/24 08:32 Oxygen Delivery Method Room Air 10/01/24 08:32 BMI result Body Mass Index 25.2 Tobacco/Smoking Status: Tobacco use Status Tobacco use date assessed 10/01/24 10/01/24 08:35 Patient Tobacco Use Status Former Tobacco user 10/01/24 08:35 e-Cigarette/Vaping Use Never Used 10/01/24 08:35 PHQ-9: PHQ-9 Score PHQ-9: Total score 0 10/01/24 08:56 Depression Screening Interpretation: Negative Thrive Assessment: Date of Thrive Assessment Date Thrive assessed 10/01/24 10/01/24 08:35 Currently or been in a relationship where the following occur: No concerns reported Const General: cooperative, comfortable and no acute distress Orientation/consciousness: patient oriented x3 HENMT Head: Yes normocephalic and Yes atraumatic Eyes General: appearance normal, both eyes and all related structures Pupils: Equal, round and reactive pupils present EOM: EOMs intact bilaterally Neck Neck: Yes supple and No lymphadenopathy Thyroid: Thyroid normal Lymphatic: no lymphadenopathy noted Chest Breast/axilla palpation: normal palpation of the breasts Resp Effort & Inspection: normal respiratory effort and able to speak in complete sentences Auscultation: clear to auscultation bilaterally Cardio Heart sounds: S1 normal heart sound present and S2 normal heart sound present GI Palpation (GI): Soft to palpation and nontender Auscultation: normal bowel sounds General: Yes no CVA tenderness Back/Spine/Pelvis Back: no CVA tenderness Skin General skin exam: elasticity normal and turgor normal Neuro General: patient oriented x3 and gait normal Cranial nerves: Yes Equal, round and reactive pupils present Speech: No Abnormal speech present Sensory Exam: No Sensory deficit (Neuro) Coordination: tandem gait normal and Romberg test negative Extrem General: Yes normal exam except as noted and No edema Office Procedures Flu Questionnaire Does the patient have a severe egg allergy?: No Does the patient have severe life threatening allergies?: No Does the patient have a fever or illness today?: No Has the patient ever had Guillain-Chase Syndrome?: No Has the patient ever had any past reaction to a flu shot?: No Immunizations Fluarix Triv 8865-8857 (PF) 45 mcg (15 mcg x 3)/0.5 mL IM syringe Performing Provider: Nelson Mccoy MD Performing Location: [facility] Administered by: José Miguel Yepez CMA on 10/01/24 08:56 Dose Route Admin Location Dispensed Lot Number Expiration Date NDC Undercoat Sprayer 0.5 mL IM Right Deltoid 0.5 mL [id number] 04/14/25 [id number] [employer] VIS Given Date VIS Provided VIS Publication Date 10/01/24 Single Vaccine 21 Eligibility Eligibility Date Funding Source Not [facility] Eligible 10/01/24 Private Coding Level of Care Code Est Pt Level 3 (41055) Est Pt Prev Care 40-64y(20420) Diagnoses Skin growth D49.2 Skin cancer screening Z12.83 Encounter for general adult medical examination with abnormal findings Z00.01 Herpes labialis B00.1 Additional Codes MANOJ-7 Assessment Billing - MANOJ-7 Assessment Tool: MANOJ-7 Assessment 95491 ([id number]) PHQ-9 - 63706 - PHQ-9 Billing: Yes ([id number]) Assessment & Plan Assessment & Plan (1) Skin growth: Code(s): D49.2 - Neoplasm of unspecified behavior of bone, soft tissue, and skin Category: Medical (2) Skin cancer screening: Code(s): Z12.83 - Encounter for screening for malignant neoplasm of skin Category: Medical (3) Encounter for general adult medical examination with abnormal findings: Code(s): Z00.01 - Encounter for general adult medical examination with abnormal findings Category: Medical (4) Herpes labialis: Code(s): B00.1 - Herpesviral vesicular dermatitis Category: Medical Plan Chief Complaint Physical exam Assessment and Plan 54-year-old female with a history of using sertraline for depression presenting for a routine wellness visit, with concerns about recent weight gain. The patient reports not using sertraline regularly over the past month due to feeling stable without it. Her weight has fluctuated since her last appointment, and she expresses a desire to manage her weight through diet and exercise. She also discussed having low vitamin D levels, which she has not been managing with supplementation. The patient mentioned a dermatological issue on her face, which she plans to have assessed by a staff technologist. Her recent colonoscopy and upcoming mammogram are up-to-date, and she plans to receive a flu vaccine during this visit. 1. Dermatological Concern On Face - Advised a dermatological evaluation for a facial lesion that appears benign but should be assessed, especially given her history of prior dermatological visits. 2. Vitamin D Deficiency - Recommended vitamin D supplementation. Patient hasn't been taking supplements regularly. 3. Use Of Sertraline For Depression - Discussed discontinuing sertraline given her current stability without it. Advised to consider a lower dosage if she decides to restart, starting with 25mg. 4. Overweight - Encouraged dietary modification and exercise. Offered dietary consultation, which the patient declined. The patient is working on weight management independently before her upcoming cruise. Diagnostic results - Labs: Last year's labs reviewed with the patient patient notified that there is an order already existing in the chart - Tests: Colonoscopy completed in August of the previous year; normal findings. Upcoming mammogram scheduled. - Diagnostics: No new diagnostics conducted during this visit. Problem List - Overweight (E66.9) - Vitamin D deficiency (E55.9) - Use of sertraline for depression (F32.9) - Dermatological concern on face (H02.837) Medications - Sertraline PRN for depression (unregular usage noted) -valacyclovir for recurrent cold sores, refill sent Health Maintenance - Influenza vaccine to be administered this visit. - Colonoscopy completed in August of last year; next due in 10 years. - Recent normal OBGYN visit and upcoming mammogram. - Vitamin D supplementation recommended, but patient has not been compliant. - Discussed weight management with focus on diet and exercise. [facility] - Dr. Wei at [facility] for OBGYN - Dr. Nicole at [facility] for Dermatology Patient Instructions - Begin vitamin D supplementation as previously advised. - Maintain regular exercise and healthy diet to address weight gain. - Contact Dr. Ruvalcaba for dermatological assessment for facial lesion. - Follow up on flu vaccine today. - Schedule and attend upcoming mammogram appointment. Orders: Orders Influenza [id number] Immunization Today Z23 - Encounter for immunization Referrals Dermatology Referral D49.2 - Neoplasm of unspecified behavior of bone, soft tissue, and skin, Z12.83 - Encounter for screening for malignant neoplasm of skin Medications: On Hold sertraline Hold Comment: patient stopped 50 mg PO DAILY 90 days 90 tabs 1RF
[2024-10-01 08:32] VITALS: BP 118/74; PULSE 81; O2SAT 99; BMI 25.2
== END 2024-10-01 08:57 | disposition home or self-care (01) ==
PROVIDERS: PCP Internal Medicine; Visit Provider Internal Medicine
DX: Z00.01 Encounter for general adult medical examination with abnormal findings (principal); D49.2 Neoplasm of unspecified behavior of bone, soft tissue, and skin; Z12.83 Encounter for screening for malignant neoplasm of skin; B00.1 Herpesviral vesicular dermatitis; Z23 Encounter for immunization

== ENCOUNTER → 2024-10-01 08:26 | Outpatient (BNVA) | payer OTHER, SELFPAY | PROVIDERS: PCP Internal Medicine; Visit Provider Internal Medicine | DX: Z00.01 Encounter for general adult medical examination with abnormal findings (principal); Z23 Encounter for immunization; D49.2 Neoplasm of unspecified behavior of bone, soft tissue, and skin; B00.1 Herpesviral vesicular dermatitis | CPT/HCPCS: 90471; 90656; 96127; 99212; 99396 ==

== ENCOUNTER 2024-10-15 08:53 | Outpatient (REF) | payer OTHER, SELFPAY | END 2024-10-15 08:54 | disposition home or self-care (01) | LOC: HO.MAMMO 08:53 | PROVIDERS: PCP Internal Medicine; Visit Provider Internal Medicine | DX: Z12.31 Encounter for screening mammogram for malignant neoplasm of breast (principal) | CPT/HCPCS: 77063; 77067 ==

== ENCOUNTER → 2024-10-15 09:15 | Outpatient (BNV) | payer OTHER, SELFPAY | PROVIDERS: PCP Internal Medicine; Visit Provider Internal Medicine | DX: Z12.31 Encounter for screening mammogram for malignant neoplasm of breast (principal) | CPT/HCPCS: 77063; 77067 ==

== ENCOUNTER 2025-10-07 12:03 | Outpatient (AMB) | payer OTHER, SELFPAY ==
[2025-10-07 12:20] VITALS: BP 108/70; PULSE 80; RESP 16; TEMP 36.7; O2SAT 97; BMI 25.2
--- NOTE | 2025-10-07 12:20 | A.OFFPC_ITS ---
Vital Signs 10/07/25 12:20 Height 5 ft 3 in Weight 142 lb BMI 25.2 BP 108/70 Blood Pressure Location Lt brachial Position Sitting Respiration 16 Pulse 80 Pulse Source Pulse Oximeter Temp 98.0 F Temp Source Oral Pulse Oximetry (%) 97 Oxygen Delivery Method Room Air Intake Visit Reasons: Annual PE Allergies amoxicillin (Amoxicillin) Allergy (Mild, Verified 10/07/25 12:20) HIVES escitalopram (Lexapro) Adverse Reaction (Unknown, Verified 10/07/25 12:20) numbness Medication List - Last Reconciled 10/07/25 by Nelson Mccoy MD valacyclovir 1,000 mg PO BID PRN 90 days Tobacco use date assessed: 10/07/25 Dental Screening Dental Screen Date: 10/07/25 Did you have a dental visit in the last 12 months?: No Did you have a dental problem in the last 6 months where you did not have access to dental care?: No Was dental information given to patient?: Patient has dentist HPI HPI Comments History of Present Illness Details History of Present Illness The patient is a 55 year old female presenting for her annual physical examination. Arm Pain: - The patient reports persistent pain in one arm RT, which she experiences about 80% of the time. - The pain is located in a general area of the arm and worsens at night, causing her to toss and turn and disrupting her sleep. - She experiences numbness in the entire arm when she lies on it while sleeping. - The pain can also be triggered by cert ain Pilates exercises, specifically when she is on her arms for an extended period. - The patient denies any associated weak ness in her hand. Bunion: - The patient has bunions on both feet, R worse than L, with the right foot being the most symptomatic, causing difficulty with wearing shoes. - She previously consulted with an ortho pedic specialist at [facility] in [place] and was informed she is a candidate for a surgical procedure to straighten the toe with a screw, rather than shaving the bunion. - She desires a referral back to [facility] to schedule this procedure. Vitamin D Deficiency: - A vitamin D supplement was recommended a year ago, but the patient reports she is not taking it. - Her dietary intake includes about 8 ou nces of almond milk daily. Health Maintenance: - The patient's last colonoscopy was in August 2023, with the next one due in 10 years. - She has a mammogram scheduled for Izaiah perrin. - She has an upcoming appointment with er DEPARTMENT SPECIALIST next week, which has been rescheduled five times. - She sees a credit risk review officer (Dr. Montes De Oca) and an allergy/child protective services specialist (Dr. Chau) yearly. 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 - Exercise: She engages in Pilates, alth ough her arm pain can sometimes be a limiting factor. - Diet: She reports drinking 8 ounces of almond milk daily. - Weight Management: The patient is tryi ng to lose a little weight. Health Maintenance - Colonoscopy: Last performed in 2022, with next screening due in 10 years. - Mammogram: Scheduled for October. - Gynecological care: An appointment is scheduled for next week; the breast exam will be deferred to this visit. - Immunizations: Received the influenza vaccine during the visit. - Specialist Care: Follows yearly with d ermatology and allergy/immunology. - Supplementation: Advised to resume lorne ing a vitamin D supplement. [place] [facility] - Dermatology: Dr. Montes De Oca, seen yearly. - Allergy/Immunology: Dr. Chau, seen rachel almanzar. - DEPARTMENT SPECIALIST: Has an upcoming appointment at [facility]. - Orthopedics: Referral placed to [facility] in [place] for bunion evaluation. 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 1. Little interest or pleasure in doing things: not at all 2. Feeling down, depressed, or hopeless: not at all 3. Trouble falling or staying asleep, or sleeping too much: several days 4. Feeling tired or having little energy: not at all 5. Poor appetite or overeating: not at all 6. Feeling bad about yourself - or that you are a failure or have let yourself or your family down: not at all 7. Trouble concentrating on things, such as reading the newspaper or watching television: not at all 8. Moving or speaking so slowly that other people could have noticed. Or the opposite - being so fidgety or restless that you have been moving around a lot more than usual: not at all 9. Thoughts that you would be better off or of hurting yourself in some way: not at all Total score: 1 Depression Screening Interpretation: Negative Depression Screening Done: Yes 90209 - PHQ-9 Billing: Yes Source: Developed by Drs. Norris Willard, Ling Gonzalez, Yo Mckeon and colleagues, with an educational valarie from [employer]. Thrive Questionnaire Date Thrive assessed: 09/25/24 I am a: Patient What is your living situation today?: I have a steady place to live Within the past 12 months, did the food you bought not last and you didn't have the money to get more?: Never true Within the past 12 months, did you worry whether your food would run out before you got money to buy more?: Never true Do you have trouble paying for medicines?: No Do you have trouble getting transportation to medical appointments?: No Do you have trouble paying your heating and electricity bill?: No Do you have trouble taking care of your child, family member or friend?: No Do you have trouble with day-to-day activities such as bathing, preparing meals, shopping, managing finances, etc.?: No Are you currently unemployed and looking for a job?: No Are you interested in more education?: No Please select the resources that you would like help with: None Currently or been in a relationship where the following occur: No concerns reported THRIVE Score: 0 AUDIT C Alcohol Use Questionnaire (AUDIT-C) 1. How often do you have a drink containing alcohol?: 2-4 times a month 2. How many drinks containing alcohol do you have on a typical day when you are drinking?: 3 or 4 3. How often do you have six or more drinks on one occasion?: Monthly Total Score: 5 MANOJ-7 AMB Questionnaire MANOJ-7 Date MANOJ - 7 assessed: 10/01/24 Feeling nervous, anxious, or on edge: 0 = Not at all Not being able to stop or control worryin = Not at all Worrying too much about different things: 1 = Several days Trouble relaxin = Not at all Being so restless that it is hard to sit still: 0 = Not at all Becoming easily annoyed or irritable: 0 = Not at all Feeling afraid as if something awful might happen: 0 = Not at all Total MANOJ-7 score (0-4 normal; 5-9 mild; 10-14 moderate; 15-21 severe): 1 Source: Developed by Drs. Norris Willard, Ling Gonzalez, Yo Mckeon and colleagues, with an educational valarie from [employer]. MANOJ-7 Assessment Billing MANOJ-7 Assessment Tool: MANOJ-7 Assessment 78913 Review of Systems Narrative Review of Systems - General: No fever no chills - Neurological: No headaches no dizziness - Ear nose throat: No sore throat no hearing difficulty no ear pain - Cardiovascular: No syncope, no chest pain, no palpitations - Gastrointestinal: No nausea vomiting or diarrhea - Endocrine: No polyuria polydipsia no heat intolerance - Genitourinary: No dysuria - Skin: No new complaints Physical exam (Primary Care) Vital Signs: Last Vital Signs Temp 98.0 F 10/07/25 12:20 Pulse 80 10/07/25 12:20 Resp 16 10/07/25 12:20 BP 108/70 10/07/25 12:20 Pulse Ox 97 10/07/25 12:20 Oxygen Delivery Method Room Air 10/07/25 12:20 BMI result Body Mass Index 25.2 Tobacco/Smoking Status: Tobacco use Status Tobacco use date assessed 10/07/25 10/07/25 12:24 Patient Tobacco Use Status Former Tobacco user 10/07/25 12:24 e-Cigarette/Vaping Use Never Used 10/07/25 12:24 PHQ-9: PHQ-9 Score PHQ-9: Total score 1 10/07/25 12:56 Depression Screening Interpretation: Negative Thrive Assessment: Date of Thrive Assessment Date Thrive assessed 09/25/24 10/07/25 12:24 Currently or been in a relationship where the following occur: No concerns reported Narrative Physical Exam General: Cooperative, healthy appearing, comfortable, no acute distress Orientation: Patient oriented x3 Head: Normal to inspection Ears: Within normal limit visually Nose: Normal external nose present Face and sinus: Normal facial exam Eyes: Appearance normal, extraocular movement intact pupils reactive Neck: Normal visual inspection and supple, possible pinched nerve causing arm pain Respiratory: Normal respiratory effort and able to speak in complete sentences. Clear to auscultation, no stridor Cardiovascular: S1 and S2 RRR GI: Normal to inspection. Soft to palpation and nontender Skin: Turgor normal, no acute findings Neuro: Patient oriented x3, motor sensory intact, balance intact, tandem pass. Reports arm pain and numbness, possibly due to pinched nerve Extremities: Normal to inspection, Rt arm and shoulder exam is WNL, bunion noted, Rt worse than left. . Office Procedures Flu Questionnaire Does the patient have a severe egg allergy?: No Does the patient have severe life threatening allergies?: No Does the patient have a fever or illness today?: No Has the patient ever had Guillain-[place] Syndrome?: No Has the patient ever had any past reaction to a flu shot?: No Immunizations Fluarix [id number] (PF) 45 mcg (15 mcg x 3)/0.5 mL IM syringe Performing Provider: Nelson Mccoy MD Performing Location: [facility] [place] [facility] Administered by: José Miguel Yepez CMA on 10/07/25 12:58 Dose Route Admin Location Dispensed Lot Number Expiration Date [facility] [employer] 0.5 mL IM Right Deltoid 0.5 mL [id number] 04/14/26 [id number] [employer] VIS Given Date VIS Provided VIS Publication Date 10/07/25 Single Vaccine 24 Eligibility Eligibility Date Funding Source Not [facility] Eligible 10/07/25 Private Coding Level of Care Code Est Pt Prev Care 40-64y(25564) Add On Preventative Visit Only Diagnoses Encounter for general adult medical examination with abnormal findings Z00.01 Bunion, right foot M21.611 Paresthesia of right arm R20.2 Additional Codes PHQ-9 - 08158 - PHQ-9 Billing: Yes ([id number]) MANOJ-7 Assessment Billing - MANOJ-7 Assessment Tool: MANOJ-7 Assessment 74164 ([id number]) Assessment & Plan Assessment & Plan (1) Encounter for general adult medical examination with abnormal findings: Code(s): Z00.01 - Encounter for general adult medical examination with abnormal findings Category: Medical (2) Bunion, right foot: Code(s): M21.611 - Bunion of right foot Category: Medical (3) Paresthesia of right arm: Code(s): R20.2 - Paresthesia of skin Category: Medical Plan Patient Instructions - You will receive the flu vaccine today. - An order has been placed for blood tests. You can go to the lab at your convenience; you do not need to be fasting. - An order has been placed for an EMG nerve conduction study to evaluate your arm pain. We will discuss the results once they are available. - A referral has been sent to [facility] for your right bunion. - Please start taking a vitamin D supplement again. - Provide your email address to the motel front desk attendant to receive instructions for accessing the [facility] patient portal. - Please schedule your next annual physical exam at the checkout desk. Orders: Orders Influenza [id number] Immunization Today Z23 - Encounter for immunization NE nerve conduction velocity Today R20.2 - Paresthesia of skin NE electromyogram (EMG) Today R20.2 - Paresthesia of skin Referrals Orthopedics Referral M21.611 - Bunion of right foot
== END 2025-10-07 14:40 | disposition home or self-care (01) ==
LOC: HO.HMCC 12:03
PROVIDERS: PCP Internal Medicine; Visit Provider Internal Medicine
DX: Z00.01 Encounter for general adult medical examination with abnormal findings (principal); M21.611 Bunion of right foot; R20.2 Paresthesia of skin; Z23 Encounter for immunization

== ENCOUNTER → 2025-10-07 12:03 | Outpatient (BNVA) | payer OTHER, SELFPAY | PROVIDERS: PCP Internal Medicine; Visit Provider Internal Medicine | DX: Z00.01 Encounter for general adult medical examination with abnormal findings (principal); Z23 Encounter for immunization; M21.611 Bunion of right foot; R20.2 Paresthesia of skin | CPT/HCPCS: 90471; 90656; 96127; 99396 ==

== ENCOUNTER 2025-10-15 08:23 | Outpatient (AMB) | payer OTHER, SELFPAY ==
--- NOTE | 2025-10-15 08:32 | A.OFFVIS_ITS ---
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 No complaints. Last Pap/HPV was negative in 01/06 Last Mammogram was BI-RADS 2 in 10/08 Last screening colonoscopy was negative in 09/07 and the recommendation was to repeat in 10 years [facility] Medical History Anxiety Elevated cholesterol Lateral epicondylitis, right elbow Surgical History History of surgical removal of ganglion cyst History of carpal tunnel release Social History Housing: House Patient Tobacco Use Status: Former Tobacco user Years Smoked: 15 e-Cigarette/Vaping Use: Never Used Current occupational status: employed Current occupation: [employer] Sexual orientation: Straight/Heterosexual Gender identity: Female Cognitive needs: No Hearing needs: No Vision needs: Yes Female Reproductive History Menstrual Date of last pap smear: 12/27/23 Date of Mammogram: 10/15/24 Review of Systems Const All systems reviewed & are unremarkable except as noted in HPI and below Card Reports as per HPI Resp Reports as per HPI GI Reports as per HPI and Reports no additional complaints Reports as per HPI Physical Exam Vital Signs: Last Vital Signs BP 118/72 10/15/25 08:33 BMI result Body Mass Index 24.4 Const General: cooperative, healthy appearing and comfortable Chest Chest palpation & inspection: normal inspection of the chest and normal palpation of entire chest wall Breast/axilla inspection: normal inspection of the breasts and normal inspection of the axillae Breast/axilla palpation: normal palpation of the breasts, normal palpation of the axillae and no axillary lymphadenopathy Resp Effort & Inspection: normal respiratory effort Auscultation: clear to auscultation bilaterally Percussion: percussion normal Cardio Palpation: normal PMI Rate: regular rate Rhythm: regular rhythm Heart sounds: no murmurs and no rubs Peripheral pulses: Peripheral pulses 2+ throughout GI Inspection: Yes normal to inspection Palpation (GI): Soft to palpation, nontender, no guarding, not rigid and No hepatosplenomegaly present Percussion: Yes normal to percussion Auscultation: normal bowel sounds Rectal Exam - Female: deferred General: Yes bladder normal to palpation External Female Exam: No lesion Speculum Exam - Vagina: normal appearance of the vagina, normal palpation, normal vaginal discharge and not erythematous Speculum Exam - Cervix: normal appearance of the cervix and normal palpation Bimanual exam- vagina & uterus: normal bimanual exam, normal palpation, uterine size normal, bladder normal to palpation, consistency normal and normal palpation Bimanual Exam- Adnexa, other: normal adnexae, no masses and no tenderness Assessment & Plan Assessment & Plan (1) Well woman exam: Code(s): Z01.419 - Encounter for gynecological examination (general) (routine) without abnormal findings Category: Medical Plan: Co testing not indicated. Counseled the patient about the recommended dietary allowance of 1200 mg of Calcium & 600 IU of vitamin D. Mammogram scheduled on 10/20/2025. The patient was instructed to perform monthly self-breast exams and schedule annual exam in a year. All questions answered and the patient verbalized understanding. Coding Level of Care Code Est Pt Prev Care 40-64y(13182) Diagnoses Well woman exam Z01.419
[2025-10-15 08:33] VITALS: BP 118/72; BMI 24.4
== END 2025-10-15 08:49 | disposition home or self-care (01) ==
LOC: HO.HWS 08:23
PROVIDERS: PCP Internal Medicine; Visit Provider Obstetrics & Gynecology
DX: Z01.419 Encounter for gynecological examination (general) (routine) without abnormal findings (principal)
CPT/HCPCS: 99396; 99459

== ENCOUNTER → 2025-10-15 08:23 | Outpatient (BNVA) | payer OTHER, SELFPAY | PROVIDERS: PCP Internal Medicine; Visit Provider Obstetrics & Gynecology | DX: Z01.419 Encounter for gynecological examination (general) (routine) without abnormal findings (principal) | CPT/HCPCS: 99396 ==